=== PATIENT | female | born 1985 | race Caucasian/White ===

== ENCOUNTER → 2023-04-25 | Outpatient (CLI) | payer BC ==
--- NOTE | 2023-04-25 09:01 | MM ---
Reason for Exam: Clinical finding. Baseline mammogram. Indicated Problems: Non-bloody discharge of both sides (Green) for 2 Month(s). Patient History: Menarche at age 12. First Full-Term at age 15. Premenopausal. Maternal aunt had breast cancer at or over age 50. Last menstrual period: 04/11/2023 Risk Values: Nicolasa 5 year model risk: 0.3%. NCI Lifetime model risk: 7.4%. Prior Study Comparison: Patient's first Mammogram. Tissue Density: The breast tissue is heterogeneously dense. This may lower the sensitivity of mammography. Findings: Analyzed By CAD. No evidence for mass or distortion. No suspicious calcifications. Overall Assessment: Incomplete: need additional imaging evaluation, BI-RAD 0 Management: Diagnostic Breast Ultrasound of both breasts. . Results were given to the patient verbally at the time of exam. Patient should continue monthly self-breast exams. A clinical breast exam by your physician is recommended on an annual basis. This exam should not preclude additional follow-up of suspicious palpable abnormalities. Note on Nicolasa scores and lifetime risk: 1. A Nicolasa score greater than 3% is considered moderate risk. If this is the case, consider specialist referral to assess eligibility for a risk reducing agent. 2. If overall lifetime risk for the development of breast cancer is 20% or higher, the patient may qualify for future screening with alternating mammogram and breast MRI. Electronically signed and approved by: Gabino Hines M.D. Radiologis
== END | disposition home or self-care (01) ==
LOC: RADMAMWWP 08:09
PROVIDERS: ATTEND Pediatrics
DX: O92.6 Galactorrhea (principal); Z80.3 Family history of malignant neoplasm of breast
CPT/HCPCS: 77062; 77066

== ENCOUNTER → 2023-04-25 | Outpatient (CLI) | payer BC ==
--- NOTE | 2023-04-25 09:39 | USB ---
Reason for Exam: Clinical finding. Patient History: Menarche at age 12. First Full-Term at age 15. Premenopausal. Maternal aunt had breast cancer at or over age 50. Risk Values: Nicolasa 5 year model risk: 0.3%. NCI Lifetime model risk: 7.4%. Technique: Method: Whole Breast Handheld. Findings: The whole breast of both breasts, the axilla of both breasts and the retroareolar of both breasts were scanned. Right breast: No solid or cystic lesion identified.. Left breast: At the left 10:00 position 5 cm from the nipple there is a small cystic structure measuring 3.2 mm. At the 11:00 position 10 cm from the nipple there is an ovoid lesion with smooth margins and internal echoes measuring 2.8 x 0.5 cm which could reflect a complex cyst with internal debris. Six-month follow-up is recommended. Cluster of cysts are noted at the left 12:00 position measuring 6 x 4 mm. Overall Assessment: Probably benign, BI-RAD 3 Management: Diagnostic Mammogram of the left breast in 6 months. Diagnostic Breast Ultrasound of the left breast in 6 months. A clinical breast exam by your physician is recommended on an annual basis and results should be correlated with mammographic findings. This exam should not preclude additional follow-up of suspicious palpable abnormalities. Results were given to the patient verbally at the time of exam. Electronically signed and approved by: Gabino Hines M.D. Radiologis
== END | disposition home or self-care (01) ==
LOC: RADUSWWP 08:39
PROVIDERS: ATTEND Pediatrics
DX: O92.6 Galactorrhea (principal); Z80.3 Family history of malignant neoplasm of breast